=== PATIENT | male | born 1985 | race Caucasian/White ===

== ENCOUNTER 2017-01-21 18:26 | Emergency (ER) | payer BC ==
--- NOTE | 2017-01-21 18:45 | Emergency Department Report ---
ED General Adult HPI - General Chief complaint: Upper Respiratory Infection Stated complaint: COUGH Time Seen by Provider: 01/21/17 18:39 Source: patient Mode of arrival: Ambulatory Limitations: No Limitations - History of Present Illness Initial comments: PT c/o productive cough x 1.5 weeks. PT states he is coughing up green phlegm. PT denies hx of asthma or pna. PT denies tobacco use. Onset/Timin -: Gradual, week(s) Location: chest Radiation: non-radiation Quality: aching (body aches ) Consistency: constant Improves with: none Associated Symptoms: cough, fever/chills (possible - fever last week ), malaise , shortness of breath Treatments Prior to Arrival: none - Related Data Previous Rx's Medication Instructions Recorded Last Taken Type Albuterol Sulfate [Ventolin HFA] 2 puff IH Q4H PRN #1 hfa.aer.ad 01/21/17 Unknown Rx Azithromycin [Zithromax] 250 mg PO DAILY #6 tablet 01/21/17 Unknown Rx Benzonatate [Tessalon Perles] 100 mg PO Q8HR PRN #12 capsule 01/21/17 Unknown Rx Guaifenesin/Pseudoephedrne HCl 1 tab PO BID PRN #14 tab 01/21/17 Unknown Rx [Mucinex D ER 1,200-120 mg Tab] Ibuprofen [Motrin] 600 mg PO Q8H PRN #15 tablet 01/21/17 Unknown Rx methylPREDNISolone [Medrol] 4 mg PO DAILY #1 tab.ds.pk 01/21/17 Unknown Rx Allergies Allergy/AdvReac Type Severity Reaction Status Date / Time No Known Allergies Allergy Unverified 01/21/17 19:18 ED Review of Systems ROS: Stated complaint: COUGH Other details as noted in HPI Constitutional: fever (subjective, last week ) ENT: denies: congestion Respiratory: cough, shortness of breath Cardiovascular: denies: chest pain Gastrointestinal: denies: vomiting Musculoskeletal: myalgia (last week ) Neurological: denies: headache ED Past Medical Hx - Past Medical History Hx Asthma: No Hx COPD: No - Social History Smoking Status: Never Smoker - Medications Home Medications: Home Medications Medication Instructions Recorded Confirmed Last Taken Type Albuterol Sulfate [Ventolin HFA] 2 puff IH Q4H PRN #1 hfa.aer.ad 01/21/17 Unknown Rx Azithromycin [Zithromax] 250 mg PO DAILY #6 tablet 01/21/17 Unknown Rx Benzonatate [Tessalon Perles] 100 mg PO Q8HR PRN #12 capsule 01/21/17 Unknown Rx Guaifenesin/Pseudoephedrne HCl 1 tab PO BID PRN #14 tab 01/21/17 Unknown Rx [Mucinex D ER 1,200-120 mg Tab] Ibuprofen [Motrin] 600 mg PO Q8H PRN #15 tablet 01/21/17 Unknown Rx methylPREDNISolone [Medrol] 4 mg PO DAILY #1 tab.ds.pk 01/21/17 Unknown Rx ED Physical Exam - General Limitations: No Limitations General appearance: alert, in no apparent distress - Head Head exam: Present: atraumatic, normocephalic, normal inspection - Eye Eye exam: Present: normal appearance. Absent: conjunctival injection - ENT ENT exam: Present: normal exam, mucous membranes moist, normal external ear exam - Neck Neck exam: Present: normal inspection, full ROM. Absent: lymphadenopathy - Respiratory Respiratory exam: Present: other (lung sounds clear shai, diminished LLL - pt coughing during exam ). Absent: respiratory distress, wheezes, chest wall tenderness, accessory muscle use - Cardiovascular Cardiovascular Exam: Present: regular rate, normal rhythm, normal heart sounds - GI/Abdominal GI/Abdominal exam: Present: soft. Absent: tenderness - Extremities Exam Extremities exam: Present: normal inspection, full ROM - Back Exam Back exam: Present: normal inspection, full ROM. Absent: tenderness, CVA tenderness (R), CVA tenderness (L), muscle spasm, paraspinal tenderness, vertebral tenderness - Neurological Exam Neurological exam: Present: alert, oriented X3, normal gait - Psychiatric Psychiatric exam: Present: normal affect, normal mood - Skin Skin exam: Present: warm, dry, intact, normal color ED Course Vital Signs 01/21/17 19:15 Temperature 98.1 F Pulse Rate 60 Respiratory 18 Rate Blood Pressure 122/81 Blood Pressure 122/81 [Right] O2 Sat by Pulse 97 Oximetry - Reevaluation(s) Reevaluation #1: 01/21/17 20:29 PT states he is able to breath better. PT with LLL exp wheeze. PT is not in acute resp distress. PT aware of dx and plan of care. Given pt's symptoms and presentation, will treat as complicated bronchitis. - Pulse Oximetry Interpretation Digit-Finger Initial Pulse Oximetry Readin Actions Taken: none ED Medical Decision Making - Radiology Data Radiology results: report reviewed, image reviewed CXR-NAP - Differential Diagnosis bronchitis, pna, uri Critical Care Time: No Critical care attestation.: If time is entered above; I have spent that time in minutes in the direct care of this critically ill patient, excluding procedure time. ED Disposition Clinical Impression: Acute bronchitis Qualifiers: Bronchitis organism: unspecified organism Qualified Code(s): J20.9 - Acute bronchitis, unspecified Disposition: DISCHARGED TO HOME OR SELFCARE Is pt being admited?: No Does the pt Need Aspirin: No Condition: Stable Instructions: How to Use a Metered-Dose Inhaler (ED), Acute Bronchitis (ED) Additional Instructions: Follow up with PCP in 3-5 days Return to ED if worsening or concerns Prescriptions: Albuterol Sulfate [Ventolin HFA] 2 puff IH Q4H PRN #1 hfa.aer.ad PRN Reason: Shortness Of Breath Azithromycin [Zithromax] 250 mg PO DAILY #6 tablet Benzonatate [Tessalon Perles] 100 mg PO Q8HR PRN #12 capsule PRN Reason: Cough Guaifenesin/Pseudoephedrne HCl [Mucinex D ER 1,200-120 mg Tab] 1 tab PO BID PRN #14 tab PRN Reason: Cough Ibuprofen [Motrin] 600 mg PO Q8H PRN #15 tablet PRN Reason: Pain methylPREDNISolone [Medrol] 4 mg PO DAILY #1 tab.ds.pk Referrals: PRIMARY CARE,MD [Primary Care Provider] - 3-5 Days Forms: Work/School Release Form(ED) Time of Disposition: 20:34
[2017-01-21 19:18] VITALS: BP 122/81
[2017-01-21] MEDS ORDERED: TESSALON PERLES PO ONE (19:22)
[2017-01-21] MEDS ORDERED: DUONEB 0.5 MG-3 MG/3 ML SOLN IH ONE (19:22)
--- NOTE | 2017-01-21 20:14 | XRay Report ---
FINAL REPORT PROCEDURE: XR CHEST ROUTINE 2V TECHNIQUE: PA and lateral chest radiographs were obtained. CPT 62091 HISTORY: sob, productive cough COMPARISON: No prior studies are available for comparison. FINDINGS: Heart: Normal contour. Mediastinum/Vessels: Normal contour. Lungs/Pleural space: No infiltrate, effusion, or pneumothorax. Bony thorax: No acute osseous abnormality. Other: IMPRESSION: No pulmonary infiltrates are identified.
== END 2017-01-21 20:45 | disposition home or self-care (01) ==
LOC: ED 18:26
DX: J02.9 Acute pharyngitis, unspecified (principal)
CPT/HCPCS: 71020; 99283